=== PATIENT | female | born 1955 | race Hispanic/Latino ===

== ENCOUNTER → 2022-09-16 | Outpatient (CLI) | payer OTHER | LOC: MAMMO 10:11 | PROVIDERS: ATTEND Internal Medicine | DX: Z12.31 Encounter for screening mammogram for malignant neoplasm of breast (principal) | CPT/HCPCS: 77067 ==

== ENCOUNTER → 2024-12-27 | Day surgery (SDC) | payer MEDICARE ==
[2024-12-22 11:21] LABS: BASOPHILS % 0.1 % (0.0-1.0); EOSINOPHILS % 1.7 % (0.0-6.0); LYMPHOCYTES % 24.2 % (18.0-39.1); MONOCYTES % 5.3 % (4.4-11.3); NEUTROPHILS % 68.6 % (38.7-80.0); RED CELL DISTRIBUTION WIDTH 13.1 % (11.7-14.4)
[2024-12-22 11:41] LABS: EST GLOMERULAR FILTRATION RATE 77.0 ML/MIN (>=60)
[~2024-12-27] MED LIST: ACETAMINOPHEN-1 EAC4 PO; AMLODIPINE BESY10 MG PO; ASPIRIN EC81 MG PO; ATORVASTATIN CA20 MG PO; DEXAMETHASONE SOD PHOS INJ 4 MG/ML SDV ONE; DIOVAN160 MG PO; FAMOTIDINE 20 MG/2 ML VIAL IV ONE; FENTANYL CITRATE/PF 100MCG/2 ML INJ ONE; GLYCOPYRROLATE INJ 0.2 MG/ML VIAL ONE; HYDROCODONE/APAP 7.5MG-325MG 1 EA TAB ONE; JARDIANCE25 MG PO; KETOROLAC TROMETHAMINE 30 MG/ML VIAL ONE; LIDOCAINE HCL 2% LOCAL INJ 5 ML SDV VIAL INJ ONE; METFORMIN HCL500 M2 PO; ONDANSETRON HCL INJ 2MG/ML 2ML 2 MG/ML VIAL ONE; OZEMPIC2 MG/0.75 SC; PROPOFOL IV EMULSION 10 MG/ML 20 ML VIAL ONE; VITAMIN D250 MCG PO
[2024-12-27] MEDS: LACTATED RINGER'S 1,000 ML ONE (05:51)
[2024-12-27 07:31] VITALS: TEMP 97.3
[2024-12-27 08:43] VITALS: BP 169/92; PULSE 85; RESP 18; O2SAT 97
== END | disposition home or self-care (01) ==
LOC: OR 05:25
PROVIDERS: ATTEND Plastic Surgery
DX: M65.842 Other synovitis and tenosynovitis, left hand (principal); I10 Essential (primary) hypertension; I73.9 Peripheral vascular disease, unspecified; E78.5 Hyperlipidemia, unspecified; E11.9 Type 2 diabetes mellitus without complications; Z79.82 Long term (current) use of aspirin; Z79.84 Long term (current) use of oral hypoglycemic drugs; Z79.85 Long-term (current) use of injectable non-insulin antidiabetic drugs; Z79.899 Other long term (current) drug therapy; Z01.810 Encounter for preprocedural cardiovascular examination; Z01.812 Encounter for preprocedural laboratory examination
CPT/HCPCS: 26055 ×2; 36415 ×2; 71046; 80048; 82948; 85025; 93005; J0690; J1100; J1308; J1885; J2003; J2405; J2704; J3010; J7121